=== PATIENT | male | born 1945 | race Two or more races ===

== ENCOUNTER 2023-05-01 10:45 | Outpatient (CLI) | payer OTHER | END 2023-05-01 10:48 | disposition home or self-care (01) | LOC: RAD 10:45 | DX: H44.001 Unspecified purulent endophthalmitis, right eye (principal) ==

== ENCOUNTER → 2023-12-29 | Emergency (ER) | payer OTHER ==
[~2023-12-29] VITALS: Ht 165.1 cm; Wt 65.3 kg
[~2023-12-29] MED LIST: 0.9 % SODIUM CHLORIDE 1,000 ML IV STA; AMLODIPINE BESYL5 MG PO; ATORVASTATIN CA40 MG PO; BISOPROLOL-HCT1 EAC1 PO; CLOPIDOGREL BIS75 MG PO; DEXAMETHASONE SODIUM PHOSP/PF 10 MG/ML VIAL IV ONE; DEXAMETHASONE SODIUM PHOSPHATE 4 MG/ML VIAL IV NR; DEXAMETHASONE SODIUM PHOSPHATE 4 MG/ML VIAL IV STA; JANUMET 50-1,01 EACH PO; JARDIANCE10 MG PO
[2023-12-29 14:56] LABS: HEMATOCRIT 34.6 % (39.0-48.0); HEMOGLOBIN 11.9 g/dL (13-16.00); MEAN CELL VOLUME 85.7 fL (80.0-100.00); MEAN CORPUSCULAR HEMOGLOBIN 29.4 pg (27.00-32.0); MEAN CORPUSCULAR HGB CONC 34.4 g/dl (32.0-36.0); PLATELET COUNT 225 K/uL (150-450); RED BLOOD COUNT 4.03 M/uL (4.00-6.00); RED CELL DISTRIBUTION WIDTH 14.2 % (11.5-14.5)
[2023-12-29 15:03] LABS: ALBUMIN 3.3 gm/dL (3.4-5.0); BILIRUBIN TOTAL 1.16 mg/dL (0.3-1.2); BILIRUBIN,CONJUGATED 0.27 mg/dL (0.0-0.2); BILIRUBIN,UNCONJUGATED 0.89 mg/dL (0.0-0.6); CALCIUM 9.1 mg/dL (8.5-10.1); CREATININE SERUM 1.26 mg/dL (0.70-1.30); GFR 55.06; POTASSIUM 4.2 mEq/L (3.5-5.1); TOTAL PROTEIN 6.9 gm/dL (6.4-8.2)
[2023-12-29 16:17] LABS: PH,URINE 5.5 (5.0-8.0); URINE APPEARANCE Clear; URINE BILIRRUBIN Negative (NEGATIVE); URINE BLOOD Negative; URINE COLOR Yellow; URINE LEUKOCYTE Negative; URINE NITRATE Negative; URINE PROTEIN Negative (NEGATIVE); URINE UROBILINOGEN 0.2 E.U./dl
[2023-12-29 16:22] LABS: URINE BACTERIA 6.2 uL (0.0-1933); URINE EPITHELIAL CELLS 1.6 uL (0.0-38.8)
[2023-12-29 16:31] LABS: URINE GLUCOSE >=1000 MG/DL (NEGATIVE); URINE RBC 0.4 uL (0.0-20.8); URINE WBC 1.2 uL (0.0-23.2)
== END | disposition designated cancer center or children's hospital (05) ==
LOC: ER 12:48
PROVIDERS: General Practice
DX: G23.8 Other specified degenerative diseases of basal ganglia (principal); R42 Dizziness and giddiness; E11.9 Type 2 diabetes mellitus without complications; Z79.84 Long term (current) use of oral hypoglycemic drugs; I10 Essential (primary) hypertension; Z20.822 Contact with and (suspected) exposure to COVID-19
CPT/HCPCS: 36415; 70450; 70542; 93005; 96365; 96366; 99285; J1100; J3490; Q9965; 70545

== ENCOUNTER → 2024-03-12 | Outpatient (CLI) | payer OTHER ==
[~2024-03-12] MED LIST changes: -0.9 % SODIUM CHLORIDE 1,000 ML IV STA; -DEXAMETHASONE SODIUM PHOSP/PF 10 MG/ML VIAL IV ONE; -DEXAMETHASONE SODIUM PHOSPHATE 4 MG/ML VIAL IV NR; -DEXAMETHASONE SODIUM PHOSPHATE 4 MG/ML VIAL IV STA
== END | disposition home or self-care (01) ==
LOC: MRI 13:48
DX: C85.89 Other specified types of non-Hodgkin lymphoma, extranodal and solid organ sites (principal); C79.32 Secondary malignant neoplasm of cerebral meninges
CPT/HCPCS: 70553; 72157; 72158; Q9965; 70543; 72147; 72149

== ENCOUNTER 2024-08-22 10:43 | Outpatient (CLI) | payer OTHER | END 2024-08-22 10:47 | disposition home or self-care (01) | LOC: RAD 10:43 | DX: H35.371 Puckering of macula, right eye (principal) ==

== ENCOUNTER 2025-06-15 09:42 | Outpatient (CLI) | payer OTHER ==
[2025-06-15 11:43] LABS: CREATININE SERUM 0.98 mg/dL (0.70-1.30)
== END 2025-06-15 09:43 | disposition home or self-care (01) ==
LOC: LAB 09:42
PROVIDERS: ATTEND Radiology Diagnostic Radiology
DX: C83.390 Primary central nervous system lymphoma (principal)

== ENCOUNTER → 2025-06-18 | Outpatient (CLI) | payer OTHER | END | disposition home or self-care (01) | LOC: MRI 10:26 | DX: C83.390 Primary central nervous system lymphoma (principal); D64.0 Hereditary sideroblastic anemia | CPT/HCPCS: 70553; Q9965 ==